=== PATIENT | male | born 1970 | race Caucasian/White ===

== ENCOUNTER → 2017-06-07 | Outpatient (CLI) | payer OTHER ==
[~2017-06-07] MED LIST: ASCO10004 PO; ASPI-496 PO; ATOR20TA9 PO; BENA20TA2 PO; CHOL100018 PO; CILO100T17 PO; CLOP75TA22 PO; CYAN25009 PO; HYDR-3240 PO; LEVO150T5 PO; MULT-516 PO; OMEP-110 PO
== END | disposition home or self-care (01) ==
LOC: CVU 13:38
PROVIDERS: ATTEND Surgery
DX: I65.23 Occlusion and stenosis of bilateral carotid arteries (principal); I70.202 Unspecified atherosclerosis of native arteries of extremities, left leg; I74.8 Embolism and thrombosis of other arteries; Z95.820 Peripheral vascular angioplasty status with implants and grafts
CPT/HCPCS: 93880; 93922; 93926